=== PATIENT | female | born 1980 | race Two or more races ===

== ENCOUNTER 2018-06-04 23:13 | Emergency (ER) | payer SELFPAY ==
[~2018-06-04] VITALS: Ht 162.6 cm; Wt 83.5 kg
[2018-06-04] MEDS ORDERED: ONDANSETRON PF 4 MG/2 ML VIAL. IV ONE (23:30)
[2018-06-04] MEDS ORDERED: MORPHINE SULFATE 4 MG/ML VIAL. IV ONE (23:30)
[2018-06-05] MEDS ORDERED: ACET-704 PO (01:36)
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
[2018-06-05 01:42] VITALS: BP 138/80
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
== END 2018-06-05 01:59 | disposition home or self-care (01) ==
LOC: EEVIPCON 23:13 → ER 23:13
DX: O9A.212 Injury, poisoning and certain other consequences of external causes complicating pregnancy, second trimester (principal); S82.831A Other fracture of upper and lower end of right fibula, initial encounter for closed fracture; O10.912 Unspecified pre-existing hypertension complicating pregnancy, second trimester; Y08.89XA Assault by other specified means, initial encounter; Y93.89 Activity, other specified; Y92.89 Other specified places as the place of occurrence of the external cause; Y99.8 Other external cause status; Z3A.16 16 weeks gestation of pregnancy
CPT/HCPCS: 29515; 73610; 96374; 96375; 99283; J2270; J2405